=== PATIENT | male | born 1985 | race African-American/Black ===

== ENCOUNTER 2022-03-02 11:14 | Emergency (ER) | payer OTHER ==
[2022-03-02 11:45] VITALS: TEMP 98.2; BMI 48.6
[2022-03-02 13:47] LABS: BASO % 0.3 % (0-2.0); EOS % 0.3 % (0-4.5); HEMATOCRIT 44.1 % (35.4-49); HEMOGLOBIN 15.6 GM/dL (11.7-16.9); LYMPH % 33.5 % (8-40); MCH 32.5 pg (25.7-33.7); MCHC 35.4 g/dl (32.0-35.9); MEAN CELL VOLUME 91.7 fl (80-96); MEAN PLT VOLUME 7.4 fl (7.5-11.1); MONO % 11.6 % (3.8-10.2); NEUT % 54.3 % (42.8-82.8); PLATELET COUNT 278 10^3/uL (134-434); RBC 4.81 M/mm3 (4.00-5.60); RDW 13.2 % (11.9-15.9); WHITE BLOOD COUNT 6.7 K/mm3 (4.0-10.0)
[2022-03-02 14:03] VITALS: BP 123/74; PULSE 68
[2022-03-02 14:08] LABS: ALBUMIN 4.5 g/dl (3.4-5.0); BLOOD UREA NITROGEN 29.4 mg/dL (7-18); CALCIUM 9.3 mg/dL (8.5-10.1); MAGNESIUM 2.3 mg/dL (1.8-2.4)
[2022-03-02 14:11] LABS: CREATININE 1.5 mg/dL (0.55-1.3); PHOSPHOROUS 3.4 mg/dL (2.5-4.9)
[2022-03-02 14:13] LABS: BILIRUBIN,TOTAL 0.5 mg/dL (0.2-1); TOT PROT 8.6 g/dl (6.4-8.2)
== END 2022-03-02 17:00 | disposition left against medical advice (07) ==
LOC: JER 11:14
DX: R42 Dizziness and giddiness (principal)
CPT/HCPCS: 36415; 73562-TC-LT-FY; 80053; 82088; 83735; 84100; 84244; 84443; 84484; 85025; 93005; 93010; 99285-25